=== PATIENT | female | born 1970 | race Hispanic/Latino ===

== ENCOUNTER → 2021-06-02 | Outpatient (CLI) | payer OTHER | LOC: MRI 12:54 | PROVIDERS: ATTEND Podiatrist Foot & Ankle Surgery | DX: M76.62 Achilles tendinitis, left leg (principal) ==

== ENCOUNTER 2024-11-27 10:15 | Outpatient (RCR) | payer OTHER | END 2024-12-25 | LOC: OT 10:15 | PROVIDERS: ATTEND Community Health Worker | DX: G56.03 Carpal tunnel syndrome, bilateral upper limbs (principal); M79.7 Fibromyalgia ==